=== PATIENT | male | born 1955 | race Caucasian/White ===

== ENCOUNTER 2017-12-07 08:18 | Inpatient (IN) ==
[2017-12-07] MEDS ORDERED: ENOXAPARIN 80 MG/0.8 ML SYRINGE SUBCUT STA (08:30)
[2017-12-07] MEDS ORDERED: ASPIRIN CHEW 81 MG TABLET PO STA (08:30)
[2017-12-07] MEDS ORDERED: ENOXAPARIN 80 MG/0.8 ML SYRINGE SUBCUT ONE (08:32)
[2017-12-07] MEDS ORDERED: ASPIRIN 325 MG TABLET ONE (08:32)
[2017-12-07] MEDS ORDERED: TICAGRELOR 90 MG TABLET ONE (08:32)
[2017-12-07] MEDS ORDERED: NITROGLYCERIN 2% OINT 1 INCH/GM PACK TOP ONE (08:34)
[2017-12-07] MEDS ORDERED: NITROGLYCERIN 2% OINT 1 INCH/GM PACK TOP STA (08:35)
[2017-12-07] MEDS ORDERED: MIDAZOLAM 2 MG/2 ML VIAL ONE (08:56)
[2017-12-07] MEDS ORDERED: fentaNYL 100 MCG/2 ML VIAL ONE (08:56)
[2017-12-07] MEDS ORDERED: LIDOCAINE 1% 20 ML VIAL ONE (08:57)
[2017-12-07] MEDS ORDERED: HEPARIN/NACL 0.9% 2 UNITS/ML 1,000 ML IV ONE (08:57)
[2017-12-07 09:23] LABS: Basophils # 0.1 10*3/uL (0.0-0.2); Basophils % 0.4 % (0.0-0.8); Eosinophils # 0.3 10*3/uL (0.0-0.87); Eosinophils % 2.2 % (0.00-10.9); Hematocrit 50.2 VOL% (42.0-52.0); Immature Granulocytes % 0.3 %; Immature Granulocytes Absolute 0.04 #; Lymphocytes # 2.2 10*3/uL (1.4-4.0); Lymphocytes % 15.7 % (21.2-54.2); Mean Corpuscular HGB Conc 33.9 GM/DL (32-36); Mean Corpuscular Hemoglobin 33 PG (27-34); Mean Corpuscular Volume 96.5 FL (87-102); Mean Platelet Volume 11.1 FL (9.6-12.0); Monocytes # 0.7 10*3/uL (0.11-0.8); Monocytes % 5.1 % (1.7-12.7); Neutrophils # 10.6 10*3/uL (1.4-7.4); Neutrophils % 76.3 % (38.7-73.9); Platelet Count 227 T/CUMM (130-400); Red Cell Distribution Width 12.3 % (9.3-17.3); White Blood Count 13.9 T/CUMM (4-12)
[2017-12-07] MEDS ORDERED: SODIUM CHLORIDE 0.9% 1,000 ML IV SCH (09:30)
[2017-12-07] MEDS ORDERED: ONDANSETRON 4 MG/2 ML VIAL IV PRN (09:30)
[2017-12-07] MEDS ORDERED: ZALEPLON 5 MG CAPSULE PO PRN (09:30)
[2017-12-07] MEDS ORDERED: DILTIAZEM 30 MG TABLET PO PRN (09:32)
[2017-12-07 09:36] LABS: CKMB % 7.4 %
[2017-12-07 09:42] LABS: Troponin I Only 4.05 NG/ML (0.00-0.045)
[2017-12-07 09:53] LABS: PT Patient Result 10.7 SECS
[2017-12-07 10:04] LABS: Potassium 4.9 MMOL/L (3.5-5.1)
[2017-12-07 10:06] LABS: Calcium 8.8 MG/DL (8.5-10.1)
[2017-12-07 10:07] LABS: Osmolality,Calculated 277.7 MOS/KG (273-304)
[2017-12-07] MEDS ORDERED: ALBUTEROL 2.5 MG/3 ML NEB RESP TX PRN (13:00)
[2017-12-07] MEDS ORDERED: Fluticasone/Salmeterol [Advair Hfa 115-21 Mcg Inhaler] 2 PUFFS INH SCH (21:00)
[2017-12-07] MEDS ORDERED: ROSUVASTATIN 20 MG TABLET PO SCH (21:00)
[2017-12-07] MEDS: METOPROLOL TARTRATE 25 MG TABLET PO SCH (22:14)
[2017-12-08 05:58] LABS: CKMB % 4.2 %; Calcium 8.6 MG/DL (8.5-10.1); Osmolality,Calculated 277.5 MOS/KG (273-304); Potassium 4.1 MMOL/L (3.5-5.1)
[2017-12-08 06:09] LABS: Troponin I Only 3.47 NG/ML (0.00-0.045)
[2017-12-08] MEDS: METOPROLOL TARTRATE 25 MG TABLET PO SCH (08:53)
[2017-12-08] MEDS ORDERED: MULTIVITAMIN (CENTRUM) TABLET PO SCH (09:00)
[2017-12-08] MEDS ORDERED: PANTOPRAZOLE 40 MG TABLET PO SCH (09:00)
[2017-12-08] MEDS ORDERED: ASPIRIN EC 325 MG TABLET PO SCH (09:00)
[2017-12-08 11:17] VITALS: BP 116/63
[2017-12-08] MEDS ORDERED: LISINOPRIL 2.5 MG TABLET PO SCH (15:30)
== END 2017-12-08 15:50 | disposition home or self-care (01) | DRG 281 ==
LOC: N.ED 08:18 → N.2W 09:05 → N.CL 09:05 → EDSTATUS 09:30 → N.CL 10:00 → N.2W 10:03 → N.TELES 11:53
PROVIDERS: ADMIT Internal Medicine Cardiovascular Disease; ATTEND Internal Medicine Cardiovascular Disease
PROC: CLCCHCL (ICD-10-PCS; 2017-12-07 09:45)

== ENCOUNTER 2019-12-21 10:46 | Inpatient (IN) ==
[2019-12-21] MEDS ORDERED: methylPREDNISolone SOD SUC 125 MG/2 ML VIAL IV STA (11:18)
[2019-12-21] MEDS ORDERED: ALBUTEROL/IPRATROPIUM 3 ML NEB RESP TX STA (11:18)
[2019-12-21 11:27] LABS: Basophils % 0.4 % (0.0-0.8); Eosinophils # 0.4 10*3/uL (0.0-0.87); Eosinophils % 4.6 % (0.00-10.9); Hematocrit 45.6 VOL% (42.0-52.0); Hemoglobin 15.2 GM/DL (14.0-18.0); Immature Granulocytes % 0.2 %; Immature Granulocytes Absolute 0.02 #; Lymphocytes # 1.4 10*3/uL (1.4-4.0); Lymphocytes % 14.8 % (21.2-54.2); Mean Corpuscular HGB Conc 33.3 GM/DL (32-36); Mean Corpuscular Volume 96.2 FL (87-102); Mean Platelet Volume 10.2 FL (9.6-12.0); Monocytes % 8.7 % (1.7-12.7); Neutrophils % 71.3 % (38.7-73.9); Platelet Count 254 T/CUMM (130-400); Red Blood Count 4.74 MC/CUMM (3.8-5.5); Red Cell Distribution Width 12.2 % (9.3-17.3); White Blood Count 9.2 T/CUMM (4-12)
[2019-12-21 11:47] LABS: Albumin 3.9 G/DL (3.4-5.0); Calcium 9.3 MG/DL (8.5-10.1); Osmolality,Calculated 273.1 MOS/KG (273-304)
[2019-12-21 11:50] LABS: PT Patient Result 11.2 SECS (9.8-11.9); Partial Thromboplastin Time 28.2 SECS (23.9-33.8)
[2019-12-21] MEDS ORDERED: ONDANSETRON 4 MG/2 ML VIAL IV PRN (12:48)
[2019-12-21] MEDS ORDERED: ACETAMINOPHEN 325 MG TABLET PO PRN (12:48)
[2019-12-21] MEDS ORDERED: DILTIAZEM 30 MG TABLET PO PRN (12:55)
[2019-12-21] MEDS ORDERED: ALBUTEROL/IPRATROPIUM 3 ML NEB RESP TX SCH (13:00)
[2019-12-21] MEDS ORDERED: SODIUM CHLORIDE 0.9% 100 ML IV ONE (13:13)
[2019-12-21] MEDS ORDERED: cefTRIAXone 1,000 MG VIAL ONE (13:13)
[2019-12-21] MEDS: cefTRIAXone 1,000 MG in SYRINGE 1 EACH IV SCH (13:45)
[2019-12-21] MEDS: ALBUTEROL INHALER 18 GM INH SCH ×2 (18:40→23:40)
[2019-12-21] MEDS ORDERED: ALBUTEROL INHALER 18 GM INH SCH (19:00)
[2019-12-21] MEDS: DOCUSATE SODIUM 100 MG CAPSULE PO SCH (20:54)
[2019-12-21] MEDS: ENOXAPARIN 40 MG/0.4 ML SYRINGE SUBCUT SCH (20:54)
[2019-12-21] MEDS: methylPREDNISolone SOD SUC 40 MG/1 ML VIAL IV SCH (20:54)
[2019-12-21] MEDS: METOPROLOL TARTRATE 25 MG TABLET PO SCH (20:54)
[2019-12-21] MEDS: ROSUVASTATIN 20 MG TABLET PO SCH (20:54)
[2019-12-21] MEDS ORDERED: NON-FORMULARY MEDICATION (Fluticasone Propion-Salmeterol [Advair Hfa] 2 PUFFS) INH SCH (21:00)
[2019-12-22] MEDS: methylPREDNISolone SOD SUC 40 MG/1 ML VIAL IV SCH ×3 (04:50→20:24)
[2019-12-22] MEDS: ALBUTEROL INHALER 18 GM INH SCH ×6 (04:54→23:12)
[2019-12-22 06:06] LABS: Basophils % 0.1 % (0.0-0.8); Hematocrit 39.7 VOL% (42.0-52.0); Hemoglobin 13.4 GM/DL (14.0-18.0); Immature Granulocytes % 0.6 %; Immature Granulocytes Absolute 0.06 #; Lymphocytes # 0.8 10*3/uL (1.4-4.0); Lymphocytes % 8.8 % (21.2-54.2); Mean Corpuscular HGB Conc 33.8 GM/DL (32-36); Mean Corpuscular Volume 92.5 FL (87-102); Mean Platelet Volume 10.4 FL (9.6-12.0); Monocytes % 2.8 % (1.7-12.7); Neutrophils % 87.7 % (38.7-73.9); Platelet Count 236 T/CUMM (130-400); Red Blood Count 4.29 MC/CUMM (3.8-5.5); Red Cell Distribution Width 11.9 % (9.3-17.3); White Blood Count 9.4 T/CUMM (4-12)
[2019-12-22 06:15] LABS: Calcium 8.8 MG/DL (8.5-10.1); Osmolality,Calculated 278.1 MOS/KG (273-304)
[2019-12-22] MEDS: lisinopriL 2.5 MG TABLET PO SCH (08:47)
[2019-12-22] MEDS: ASPIRIN EC 325 MG TABLET PO SCH (08:48)
[2019-12-22] MEDS: DOCUSATE SODIUM 100 MG CAPSULE PO SCH ×2 (08:48→20:26)
[2019-12-22] MEDS: METOPROLOL TARTRATE 25 MG TABLET PO SCH ×2 (08:48→20:26)
[2019-12-22] MEDS ORDERED: PANTOPRAZOLE 40 MG TABLET PO SCH (09:00)
[2019-12-22] MEDS ORDERED: AZITHROMYCIN 250 MG TABLET PO ONE (11:59)
[2019-12-22] MEDS: cefTRIAXone 1,000 MG in SYRINGE 1 EACH IV SCH (12:59)
[2019-12-22] MEDS: ROSUVASTATIN 20 MG TABLET PO SCH (20:26)
[2019-12-22] MEDS: ENOXAPARIN 40 MG/0.4 ML SYRINGE SUBCUT SCH (20:26)
[2019-12-23] MEDS: ALBUTEROL INHALER 18 GM INH SCH ×6 (03:36→22:15)
[2019-12-23] MEDS: methylPREDNISolone SOD SUC 40 MG/1 ML VIAL IV SCH ×3 (03:37→20:47)
[2019-12-23 05:39] LABS: Basophils % 0.1 % (0.0-0.8); Hematocrit 38.1 VOL% (42.0-52.0); Hemoglobin 12.5 GM/DL (14.0-18.0); Immature Granulocytes % 0.7 %; Immature Granulocytes Absolute 0.11 #; Lymphocytes # 0.9 10*3/uL (1.4-4.0); Lymphocytes % 5.6 % (21.2-54.2); Mean Corpuscular HGB Conc 32.8 GM/DL (32-36); Mean Corpuscular Volume 95.7 FL (87-102); Mean Platelet Volume 10.4 FL (9.6-12.0); Monocytes % 3.1 % (1.7-12.7); Neutrophils % 90.5 % (38.7-73.9); Platelet Count 261 T/CUMM (130-400); Red Blood Count 3.98 MC/CUMM (3.8-5.5); White Blood Count 16.6 T/CUMM (4-12)
[2019-12-23 06:00] LABS: Calcium 9.1 MG/DL (8.5-10.1); Osmolality,Calculated 280.8 MOS/KG (273-304)
[2019-12-23] MEDS: AZITHROMYCIN 250 MG TABLET PO SCH (08:54)
[2019-12-23] MEDS: METOPROLOL TARTRATE 25 MG TABLET PO SCH ×2 (08:54→20:47)
[2019-12-23] MEDS: lisinopriL 2.5 MG TABLET PO SCH (08:54)
[2019-12-23] MEDS: DOCUSATE SODIUM 100 MG CAPSULE PO SCH ×3 (08:54→21:08)
[2019-12-23] MEDS: ASPIRIN EC 325 MG TABLET PO SCH (08:54)
[2019-12-23] MEDS: cefTRIAXone 1,000 MG in SYRINGE 1 EACH IV SCH (08:54)
[2019-12-23] MEDS: ALBUTEROL/IPRATROPIUM 3 ML NEB RESP TX SCH (18:29)
[2019-12-23] MEDS: ENOXAPARIN 40 MG/0.4 ML SYRINGE SUBCUT SCH (20:47)
[2019-12-23] MEDS: ROSUVASTATIN 20 MG TABLET PO SCH (20:47)
[2019-12-24] MEDS: ALBUTEROL/IPRATROPIUM 3 ML NEB RESP TX SCH ×2 (01:47→07:15)
[2019-12-24] MEDS: ALBUTEROL INHALER 18 GM INH SCH ×2 (03:38→07:59)
[2019-12-24 07:46] VITALS: BP 114/59
[2019-12-24] MEDS: AZITHROMYCIN 250 MG TABLET PO SCH (07:59)
[2019-12-24] MEDS: METOPROLOL TARTRATE 25 MG TABLET PO SCH (08:00)
[2019-12-24] MEDS: lisinopriL 2.5 MG TABLET PO SCH (08:00)
[2019-12-24] MEDS: ASPIRIN EC 325 MG TABLET PO SCH (08:00)
[2019-12-24] MEDS: methylPREDNISolone SOD SUC 40 MG/1 ML VIAL IV SCH (08:01)
[2019-12-24] MEDS: cefTRIAXone 1,000 MG in SYRINGE 1 EACH IV SCH (08:05)
[2019-12-24] MEDS: DOCUSATE SODIUM 100 MG CAPSULE PO SCH (08:06)
== END 2019-12-24 10:35 | disposition home or self-care (01) | DRG 191 ==
LOC: N.ED 10:46 → N.EDINP 12:48 → N.2E 13:24
PROVIDERS: ADMIT Family Medicine; ATTEND Family Medicine